=== PATIENT | male | born 1940 | race Caucasian/White ===

== ENCOUNTER → 2023-08-15 13:31 | Outpatient (REF) | payer MEDICARE, OTHER, SELFPAY | LOC: RAD 13:31 | PROVIDERS: ATTENDING PHYSICIAN Family Medicine | DX: I65.23 Occlusion and stenosis of bilateral carotid arteries (principal) | CPT/HCPCS: 93880 ==

== ENCOUNTER → 2024-02-08 06:58 | Outpatient (REF) | payer MEDICARE, OTHER, SELFPAY ==
[2024-02-08 08:58] LABS: ALT (SGPT) 35 U/L (0-50); AST (SGOT) 27 U/L (17-59); Albumin 4.2 g/dl (3.5-5.0); Alkaline Phosphatase 80 U/L (38-126); Blood Urea Nitrogen 31 mg/dl (9-20); Calcium 9.5 mg/dl (8.4-10.2); Carbon Dioxide 26 mmol/L (22-30); Chloride 105 mmol/L (98-107); Glucose 171 mg/dl (70-99); Potassium 3.7 mmol/L (3.5-5.1); Sodium 139 mmol/L (135-145); Total Bilirubin 0.5 mg/dl (0.2-1.3); eGFR 50.49
[2024-02-08 10:48] LABS: Glycohemoglobin (HgbA1c) 7.7 % (4.0-5.6)
[2024-02-08 12:27] LABS: TSH 0.02 uIU/ml (0.47-4.68)
== END ==
LOC: REG 06:58
PROVIDERS: ATTENDING PHYSICIAN Family Medicine
DX: E11.9 Type 2 diabetes mellitus without complications (principal); I10 Essential (primary) hypertension; E03.9 Hypothyroidism, unspecified
CPT/HCPCS: 36415; 80053; 83036; 84439; 84443

== ENCOUNTER → 2024-03-05 07:18 | Outpatient (REF) | payer MEDICARE, OTHER, SELFPAY ==
[2024-03-05 09:11] LABS: PSA, Total - Diagnostic 7.78 ng/ml (0.0-4.0)
== END ==
LOC: REG 07:18
PROVIDERS: ATTENDING PHYSICIAN Specialist; FAMILY PHYSICIAN Family Medicine
DX: R97.20 Elevated prostate specific antigen [PSA] (principal)
CPT/HCPCS: 36415; 84153

== ENCOUNTER → 2024-05-02 07:06 | Outpatient (REF) | payer MEDICARE, OTHER, SELFPAY ==
[2024-05-02 08:00] LABS: ALT (SGPT) 27 U/L (0-50); AST (SGOT) 23 U/L (17-59); Albumin 4.3 g/dl (3.5-5.0); Alkaline Phosphatase 77 U/L (38-126); Blood Urea Nitrogen 35 mg/dl (9-20); Calcium 9.7 mg/dl (8.4-10.2); Carbon Dioxide 25 mmol/L (22-30); Chloride 104 mmol/L (98-107); Glucose 158 mg/dl (70-99); HDL Cholesterol 51 mg/dl; LDL Cholesterol, Calculated 56 mg/dl; Potassium 4.2 mmol/L (3.5-5.1); Sodium 142 mmol/L (135-145); Total Bilirubin 0.7 mg/dl (0.2-1.3); Total Cholesterol 155 mg/dl (50-199); Total Protein 7.2 g/dl (6.3-8.2); Triglyceride 244 mg/dl (10-149); Very Low Density Lipoprotein 48 mg/dl (0-30); eGFR 50.49
[2024-05-02 08:31] LABS: TSH < 0.02 uIU/ml (0.47-4.68)
[2024-05-02 12:03] LABS: Glycohemoglobin (HgbA1c) 8.3 % (4.0-5.6)
== END ==
LOC: REG 07:06
PROVIDERS: ATTENDING PHYSICIAN Family Medicine; REFERRING PHYSICIAN Student in an Organized Health Care Education/Training Program
DX: I10 Essential (primary) hypertension (principal); E78.5 Hyperlipidemia, unspecified; E11.9 Type 2 diabetes mellitus without complications; E03.9 Hypothyroidism, unspecified
CPT/HCPCS: 36415; 80053; 80061; 83036; 84443

== ENCOUNTER → 2024-08-13 08:11 | Outpatient (REF) | payer MEDICARE, OTHER, SELFPAY ==
[2024-08-13 10:06] LABS: ALT (SGPT) 29 U/L (0-50); AST (SGOT) 25 U/L (17-59); Albumin 4.4 g/dl (3.5-5.0); Alkaline Phosphatase 83 U/L (38-126); Blood Urea Nitrogen 43 mg/dl (9-20); Calcium 9.3 mg/dl (8.4-10.2); Carbon Dioxide 26 mmol/L (22-30); Chloride 105 mmol/L (98-107); Glucose 157 mg/dl (70-99); HDL Cholesterol 51 mg/dl; LDL Cholesterol, Calculated 70 mg/dl; Sodium 141 mmol/L (135-145); Total Bilirubin 0.5 mg/dl (0.2-1.3); Total Cholesterol 155 mg/dl (50-199); Total Protein 7.2 g/dl (6.3-8.2); Triglyceride 170 mg/dl (10-149); Very Low Density Lipoprotein 34 mg/dl (0-30); eGFR 50.18
[2024-08-13 10:15] LABS: Free T4 0.85 ng/dl (0.78-2.19)
[2024-08-13 10:29] LABS: TSH 1.15 uIU/ml (0.47-4.68)
[2024-08-13 11:22] LABS: Microalbumin, Random Urine > 57.0 mg/dl (0.6-1.7)
[2024-08-13 11:32] LABS: Glycohemoglobin (HgbA1c) 7.1 % (4.0-5.6)
== END ==
LOC: REG 08:11
PROVIDERS: ATTENDING PHYSICIAN Family Medicine
DX: I10 Essential (primary) hypertension (principal); E78.5 Hyperlipidemia, unspecified; E13.9 Other specified diabetes mellitus without complications; E11.9 Type 2 diabetes mellitus without complications; E03.9 Hypothyroidism, unspecified
CPT/HCPCS: 36415; 80053; 80061; 82043; 82570; 83036; 84439; 84443

== ENCOUNTER → 2024-09-16 06:46 | Outpatient (REF) | payer MEDICARE, OTHER, SELFPAY ==
[2024-09-16 08:51] LABS: PSA, Total - Diagnostic 7.07 ng/ml (0.0-4.0)
== END ==
LOC: REG 06:46
PROVIDERS: ATTENDING PHYSICIAN Specialist; FAMILY PHYSICIAN Family Medicine
DX: R97.20 Elevated prostate specific antigen [PSA] (principal)
CPT/HCPCS: 36415; 84153

== ENCOUNTER → 2024-11-11 07:51 | Outpatient (REF) | payer MEDICARE, OTHER, SELFPAY ==
[2024-11-11 09:41] LABS: Blood Urea Nitrogen 38 mg/dl (9-20); Calcium 9.8 mg/dl (8.4-10.2); Carbon Dioxide 27 mmol/L (22-30); Chloride 108 mmol/L (98-107); Glucose 145 mg/dl (70-99); HDL Cholesterol 47 mg/dl; LDL Cholesterol, Calculated 59 mg/dl; Potassium 4.5 mmol/L (3.5-5.1); Sodium 145 mmol/L (135-145); Total Cholesterol 152 mg/dl (50-199); Triglyceride 233 mg/dl (10-149); Very Low Density Lipoprotein 46 mg/dl (0-30); eGFR 50.18
[2024-11-11 10:01] LABS: Free T3 3.62 pg/ml (2.77-5.27); Free T4 0.77 ng/dl (0.78-2.19)
[2024-11-12 13:57] LABS: Thyroglobulin 10.1 ng/mL (1.3-31.8); Thyroglobulin Antibodies <1.5 IU/mL (0.0-4.0)
[2024-11-13 02:07] LABS: Thyroid Stim. Immunoglobulin <0.10 IU/L (<=0.54)
== END ==
LOC: REG 07:51
PROVIDERS: ATTENDING PHYSICIAN Internal Medicine; FAMILY PHYSICIAN Family Medicine
DX: E78.5 Hyperlipidemia, unspecified (principal); E11.9 Type 2 diabetes mellitus without complications; E03.9 Hypothyroidism, unspecified; R79.89 Other specified abnormal findings of blood chemistry
CPT/HCPCS: 80048; 80061; 83036; 84432; 84439; 84443; 84445; 84481; 86800

== ENCOUNTER → 2025-03-03 07:13 | Outpatient (REF) | payer MEDICARE, OTHER, SELFPAY ==
[2025-03-03 09:12] LABS: PSA, Total - Diagnostic 5.82 ng/ml (0.0-4.0)
[2025-03-03 10:11] LABS: Glycohemoglobin (HgbA1c) 7.1 % (4.0-5.6)
== END ==
LOC: REG 07:13
PROVIDERS: ATTENDING PHYSICIAN Specialist; FAMILY PHYSICIAN Family Medicine
DX: R97.20 Elevated prostate specific antigen [PSA] (principal); E11.9 Type 2 diabetes mellitus without complications
CPT/HCPCS: 36415; 83036; 84153

== ENCOUNTER → 2025-04-14 13:03 | Outpatient (REF) | payer MEDICARE, OTHER, SELFPAY ==
[2025-04-14 14:22] LABS: Free T3 4.11 pg/ml (2.77-5.27)
[2025-04-14 14:34] LABS: TSH 1.25 uIU/ml (0.47-4.68)
== END ==
LOC: REG 13:03
PROVIDERS: ATTENDING PHYSICIAN Internal Medicine; FAMILY PHYSICIAN Family Medicine
DX: R79.89 Other specified abnormal findings of blood chemistry (principal); E05.90 Thyrotoxicosis, unspecified without thyrotoxic crisis or storm
CPT/HCPCS: 36415; 84439; 84443; 84481